=== PATIENT | female | born 1960 | race American Indian/Alaskan Native ===

== ENCOUNTER 2019-04-07 10:23 | Day surgery (SDC) | payer MEDICARE ==
[~2019-04-07 10:23] MED LIST: NACL 0.9% 1000 ML 1,000 ML IV SCH
--- NOTE | 2019-04-07 13:53 | Anesthesia Day of Surgery ---
Anesthesia Day of Surgery - Day of Surgery Patient Examined: Yes Patient H&P Reviewed: Yes Patient is NPO: Yes
--- NOTE | 2019-04-07 13:53 | Anesthesia Consultation ---
Anesthesia Consult and Med Hx Date of service: 04/07/19 - Airway Anesthetic Teeth Evaluation: Poor (multiple missing teeth) ROM Head & Neck: Adequate Mental/Hyoid Distance: Adequate Mallampati Class: Class III Intubation Access Assessment: Possibly Difficult - Pre-Operative Health Status ASA Pre-Surgery Classification: ASA3 Proposed Anesthetic Plan: MAC - Pulmonary Hx Smoking: Yes (current smoker) Hx Sleep Apnea: Yes (snoring) - Cardiovascular System Hx Hypertension: Yes - Central Nervous System Hx Back Pain: Yes Hx Psychiatric Problems: Yes (depression/anxiety ) - Endocrine Hx Non-Insulin Dependent Diabetes: Yes - Other Systems Hx Obesity: Yes (BMI 39.3)
[2019-04-07] MEDS ORDERED: DIPRIVAN 10 MG/ML IV ONE ×3 (13:56→15:10)
[2019-04-07] MEDS ORDERED: XYLOCAINE MPF 2% ONE (14:00)
--- NOTE | 2019-04-07 15:19 | Operative Report ---
Operative Report Operative Report: Date of procedure: 04/07/2019 Procedure: Colonoscopy with Multiple submucosal injections, Multiple snare p olypectomies, Multiple polyp ablations, Multiple Hot Biopsy Polypectomies, Multiple Hemoclip applications. Attending physician: Kishore Ross M.D. Cast Shell Grinder: Kishore Ross M.D. Indication: Patient is a 58-year-old female who presents for screening colonoscopy. This colonoscopy serves to evaluate patient so that treatment may be directed based on the findings. Consent: Informed consent was obtained after advising the patient and family regarding nature of this procedure, its indications, potential benefits as well as possible complications including but not limited to bleeding perforation and adverse reaction to medication, infection as well as other cardiopulmonary complications. An informed written and verbal consent was then obtained after due opportunity was provided for questions and answers. Monitoring: Patient was monitored continuously with pulse oximetry and electrocardiographic recordings as well as blood pressure recordings. Vital signs remained stable throughout this procedure with no untoward events. Preoperative assessment: Patient was assessed immediately prior to this procedure for capacity to tolerate monitored anesthesia care and moderate sedation as well as general anesthesia. Patient's ASA classification is 3, Mallampati class is 2, Hyomental distance is 3. Instrument: Olympus video colonoscope Medications: Propofol given intravenously in divided doses. For details please refer to anesthesia records. Description of procedure: Patient was placed in the left lateral decubitus position after achieving sedation, a digital rectal examination was performed following which the colonoscope was introduced into the anal verge and advanced to the cecum which was identified by the cecal valve, the appendiceal orifice, as well as by the cecal strap and direct transillumination. The colonoscope was subsequently withdrawn with careful inspection of all mucosal surfaces. Patient tolerated this procedure well and was subsequently taken to the recovery room. The following findings were noted. Findings: The colon was moderately tortuous. Patient had substantial retained stool in the cecum and ascending colon, also descending colon and sigmoid colon. The visualization of the cecum and ascending colon was poor due to retained stool. Patient had diverticulosis of the sigmoid and descending colon as well as the ascending colon of mild severity. Patient had multiple diminutive flat polyps in the rectum which were ablated. Patient had a sessile 5 mm polyp in the rectum which was removed by hot biopsy polypectomy. Patient also had mult iple diminutive flat polyps in the sigmoid colon which were ablated. Patient had one flat polyp which measured approximately 1.5 cm. It was flat but had a mucous patch around it and appeared to be a serrated polyp. It was elevated with submucosal injection of saline and removed by snare electrocautery. The defect at the polypectomy site was then closed with 2 hemoclips. There was a 1 flat cm polyp which again was flat and had a mucous patch around it was again elevated with submucosal injection of saline and removed by snare electrocautery. The defect at the polypectomy site again was closed with a Hemoclip. There were no other additional polyps seen to the cecum. The rest of the colon to the cecum was normal except for areas of substantial retained stool with poor visualization. The procedure was technically difficult. Patient had severe sleep apnea and was difficult to sedate. Patient did not allow any air in the colon to remain and forcefully expelled any insufflated air. The colon was moderately tortuous. On the retroflex view at the anal verge, patient had internal hemorrhoids. Impression: Multiple diminutive flat rectal polyp status post ablation Rectal polyp status post hot biopsy polypectomy Multiple diminutive sigmoid colon polyps status post ablation Multiple sigmoid colon polyps status post submucosal injection, snare polypectomy and Hemoclip application. Colonic diverticulosis. Substantial retained stool with possible colonoscopic preparation. Moderate colonic tortuosity. Difficult to sedate patient with severe sleep apnea with technically difficult prolonged procedure. Internal hemorrhoids. Plan: Follow pathology report. Patient needs an urgent sleep study for proper diagnosis and treatment of her sleep apnea. Patient needs a repeat colonoscopy within 6 months. High-fiber diet. The results of the colonoscopy have been discussed and reviewed with patient. The urgency and necessity for a sleep study had been emphasized with the patient .
--- NOTE | 2019-04-07 15:20 | Discharge Summary ---
Short Stay Discharge Plan Activity: advance as tolerated Weight Bearing Status: Weight Bear as Tolerated Diet: regular Additional Instructions: Post Sedation D/C Instructions When you return home you may resume your regular diet unless otherwise directed. Go directly home from the hospital and rest quietly. You may resume normal activities tomorrow. Do NOT drive, return to work, operate any machinery or make any important personal or business decisions today. Do NOT drink any alcohol or take nerve or sleeping drugs. They add to the effects of the medicine still present in your body. Follow up with: MASON RODRIGUEZ MD [Primary Care Provider] - 7 Days
[2019-04-07 15:37] VITALS: BP 129/52
== END 2019-04-07 15:43 | disposition home or self-care (01) ==
LOC: EDBD 10:23 → GIO 10:23
PROVIDERS: ATTEND Internal Medicine Gastroenterology
DX: Z12.11 Encounter for screening for malignant neoplasm of colon (principal); D12.5 Benign neoplasm of sigmoid colon; K62.1 Rectal polyp; K57.30 Diverticulosis of large intestine without perforation or abscess without bleeding; K64.8 Other hemorrhoids; E11.9 Type 2 diabetes mellitus without complications; I10 Essential (primary) hypertension; G47.30 Sleep apnea, unspecified; F41.9 Anxiety disorder, unspecified; E78.00 Pure hypercholesterolemia, unspecified; F32.9 Major depressive disorder, single episode, unspecified; E66.9 Obesity, unspecified; F17.210 Nicotine dependence, cigarettes, uncomplicated; Z68.39 Body mass index [BMI] 39.0-39.9, adult; Z79.82 Long term (current) use of aspirin; Z79.899 Other long term (current) drug therapy
CPT/HCPCS: 45381; 45384; 45385; 45388; 82962; 88305; J2704; J7030